=== PATIENT | male | born 2000 | race Caucasian/White ===

== ENCOUNTER 2019-01-26 00:15 | Emergency (ER) | payer SELFPAY ==
--- NOTE | 2019-01-26 00:47 | ED Physician Documentation ---
Upper Respiratory Symptoms - HISTORIAN Historian: patient - HPI Stated Complaint: Chills, SOA sensation, body aches, Lt chest pressure over 24 hrs Chief Complaint: General Adult Additional Information: 19 year male presents to the ER with c/o fever, chills, cough, congestion, body aches, left side chest discomfort tender to the touch that started approx. 24 hours ago. Onset: hours Duration: sudden-Onset Context: denies: recent foreign travel Severity: mild Associated Symptoms: fever, chills, runny nose - ROS CONST/EYES: denies: eye redness, eye itching CVS/RESP: none LYMPH: denies: rash GI/: nausea. denies: vomiting NEURO/PSYCH: denies: dizziness MS/SKIN: muscle aches - PAST HX Lung Disease: other (ADHD) PE Risk Factors: none Surgeries/Procedures: none Immunizations: UTD Allergies/Adverse Reactions: Allergies Allergy/AdvReac Type Severity Reaction Status Date / Time No Known Drug Allergies Allergy Unknown Verified 01/26/19 00:32 Home Medications: Ambulatory Orders Medication Instructions Recorded NK 01/26/19 - SOCIAL HX Smoking History: less than 1 pack/day Alcohol Use: occasionally Drug Use: none - FAMILY HX Family History: none - VITAL SIGNS Vital Signs: Vital Signs Temp Pulse Resp BP Pulse Ox 97.3 F L 100 H 24 142/61 100 01/26/19 00:15 01/26/19 00:15 01/26/19 00:15 01/26/19 00:15 01/26/19 00:15 - REVIEWED ASSESSMENTS Nursing Assessment Reviewed: Yes Vitals Reviewed: Yes ED Results Lab/Radiology - Orders Orders: ED Orders Category Date Time Status INFLUENZA A&B Stat Lab 01/26/19 Uncollected Upper Respiratory Symptoms - EXAM General Appearance: alert, mild distress EENT: eyes nml inspection, nml ENT inspection, lids & conjunct. nml, PERRL, ear nml Neck: normal inspection, supple Respiratory: breath sounds nml Abdomen: nml bowel sounds CVS: equal pulses, tachycardia Skin: color nml, no rash, warm,dry Extremities: non-tender, normal range of motion Neuro/Psych: oriented x3, neuro intact, mood/affect nml Discharge Clincal Impression: Viral syndrome Referrals: Nehemias Andrews MD [Primary Care Provider] - 2 Days Additional Instructions: Alternate Tylenol and Ibuprofen as needed for fever/discomfort Increase water intake Start with bland diet and advance as tolerated Stop Smoking Follow up with PCP next week for re-evaluation Condition: Stable Disposition: 01 HOME, SELF-CARE Decision to Admit: NO Decision Time: 06:00
[2019-01-26] MEDS ORDERED: 0.9 % SODIUM CHLORIDE 1,000 ML IV ONE (00:49)
[2019-01-26] MEDS ORDERED: ONDANSETRON HCL/PF 4 MG/ 2ML VIAL IVP ONE (00:59)
[2019-01-26 01:47] VITALS: BP 120/49
[2019-01-26 06:46] LABS: eGFR (Non-African) > 60
[2019-01-26 06:47] LABS: BASOPHILS % 0.5 % (0.0-1.5); NEUTROPHILS # 10.2 # k/uL (1.4-7.7)
== END 2019-01-26 01:35 | disposition home or self-care (01) ==
LOC: ED 00:15
DX: B34.9 Viral infection, unspecified (principal)
CPT/HCPCS: 80053; 85025; 87400; 96361; 96374; 99282; 99284; J2405; J7030; S1016